=== PATIENT | female | born 1955 | race Caucasian/White ===

== ENCOUNTER 2020-06-09 15:25 | Emergency (ER) | payer MEDICARE, OTHER ==
[2020-06-09] MEDS ORDERED: Amoxicillin/Clavulanate K 875-125 MG Tab PO ONE (15:39)
--- NOTE | 2020-06-09 15:48 | EDM.PDOC ---
ED HPI GENERAL MEDICAL PROBLEM - General Chief Complaint: Bite:Animal, Insect Stated Complaint: CAT BITE - L ARM Time Seen by Provider: 06/09/20 15:33 Source of Information: Reports: Patient, RN Notes Reviewed History Limitations: Reports: No Limitations - History of Present Illness INITIAL COMMENTS - FREE TEXT/NARRATIVE: Patient is a 64-year-old female who presents to the ER for the evaluation of a cat bite. [place], and a farm cat, who comes and goes, came up to her, and ended up biting her on her left forearm. There are 4 puncture wounds on the arm, not actively bleeding at the time. Patient notes that this cat is not aggressive normally, and she is wondering if he did not smell her cat on her, and this is why he may have bitten her. She notes that he is not up-to-date on vaccinations, or she is unaware of his vaccination status. She states however he has not been known to be mean otherwise. He has not acted like this before ever. She is up-to-date on her vaccinations. She is having no fevers or chills, cough or shortness of breath, nausea/vomiting/diarrhea. She denies any numbness or tingling distal to the injury, and still has all range of motion of her hand. - Related Data Allergies Allergy/AdvReac Type Severity Reaction Status Date / Time tramadol Allergy Nervousness Verified 06/09/20 15:33 Home Meds: Home Meds Metoprolol Succinate [Toprol XL 100mg] 100 mg PO DAILY 09/11/18 [History] Amoxicillin/Clavulanate K [Augmentin 875-125 MG] 1 tab PO BID #20 tablet 06/09/20 [Rx] Pravastatin Sodium [Pravastatin (Pravachol)] 40 mg PO DAILY 06/09/20 [History] tiZANidine [Zanaflex] 4 mg PO DAILY 06/09/20 [History] Past Medical History Musculoskeletal History: Reports: Osteoarthritis, Other (See Below) Other Musculoskeletal History: back fusion Oncologic (Cancer) History: Reports: Breast - Past Surgical History GI Surgical History: Reports: Appendectomy Female Surgical History: Reports: Other (See Below) Other Female Surgeries/Procedures: right lumpectomy Social & Family History - Caffeine Use Caffeine Use: Reports: Coffee, Soda, Tea ED ROS GENERAL - Review of Systems Review Of Systems: Comprehensive ROS is negative, except as noted in HPI. ED EXAM, ANIMAL BITE - Physical Exam Exam: See Below Exam Limited By: No Limitations General Appearance: Alert, WD/WN, No Apparent Distress Respiratory/Chest: No Respiratory Distress, Lungs Clear, Normal Breath Sounds, No Accessory Muscle Use, Chest Non-Tender Cardiovascular: Normal Peripheral Pulses, Regular Rate, Rhythm, No Edema Peripheral Pulses: 2+: Radial (L), Radial (R) Extremities: Normal Range of Motion, Normal Capillary Refill Neurological: Alert, Oriented, Normal Cognition, No Motor/Sensory Deficits Psychiatric: Normal Affect, Normal Mood Skin Exam: Normal Color, Warm/Dry, Other (4 tooth like puncture wounds on the left ulnar aspect of forearm, about midway up the forearm.) Course - Vital Signs Last Recorded V/S: Last Vital Signs Temp 97.5 F 06/09/20 15:39 Pulse 97 06/09/20 15:39 Resp 18 06/09/20 15:39 BP 144/71 H 06/09/20 15:39 Pulse Ox 98 06/09/20 15:39 - Orders/Labs/Meds Meds: Medications Discontinued Medications Generic Name Dose Route Start Last Admin Trade Name Freq PRN Reason Stop Dose Admin Amoxicillin/Clavulanate Potassium 1 tab 06/09/20 15:39 Amoxicillin/Clavulanate K 875-125 Mg Tab PO 06/09/20 15:40 ONETIME ONE - Re-Assessments/Exams Free Text/Narrative Re-Assessment/Exam: 06/09/20 15:44 Patient presents to the ER for the evaluation of her cat bite, we will go ahead and start her on Augmentin for antibiotic prophylaxis. Since she is not sure of the cat's vaccination status, we will have her try to quarantine the cat if she can. As the cat will need to observe it for period of 10 days, for rabies-like symptoms, and she will need to start prophylaxis series if the cat's behavior becomes concerning for rabies. Departure - Departure Time of Disposition: 15:45 Disposition: Home, Self-Care 01 Condition: Good Clinical Impression: Cat bite of forearm Qualifiers: Encounter type: initial encounter Laterality: left Qualified Code(s): S51.852A - Open bite of left forearm, initial encounter - Discharge Information *PRESCRIPTION DRUG MONITORING PROGRAM REVIEWED*: No *COPY OF PRESCRIPTION DRUG MONITORING REPORT IN PATIENT TESS: No Prescriptions: Amoxicillin/Clavulanate K [Augmentin 875-125 MG] 1 tab PO BID #20 tablet Instructions: Animal Bite, Adult, [id number] Referrals: Mercedes Geller MD [Primary Care Provider] - Forms: ED Department Discharge Additional Instructions: You were evaluated in the ER today for your cat bite on your left forearm. The wound was cleansed with iodine. You were started on antibiotic, Augmentin, 1 tablet 2 times a day for the next 10 days. This medication was electronically sent to the [place] pharmacy located in the [facility] [employer] [facility] [facility]. Please monitor the area for any increased redness/swelling/drainage from the wound sites. You may use 500 mg Tylenol or 600 mg ibuprofen every 6 hours as needed for further pain relief, do not exceed 4000 mg Tylenol or 3200 mg ibuprofen in a 24-hour time span. Due to the cat in question being a farm cat, and not being up-to-date on its vaccinations, the cat should be quarantined for at least a period of 10 days, to be observed to make sure that it does not exhibit any signs or symptoms for possible rabies. Please be in contact with your regular care provider, for further rabies prophylaxis if the cat should be declared a concern for rabies. Please return to the ER at any time if symptoms change or worsen. Sepsis Event Note (ED) - Focused Exam Vital Signs: Vital Signs Temp Pulse Resp BP Pulse Ox 06/09/20 15:39 97.5 F 97 18 144/71 H 98
== END 2020-06-09 16:25 | disposition home or self-care (01) ==
LOC: JD.ED 15:25
DX: S51.852A Open bite of left forearm, initial encounter (principal); Z88.6 Allergy status to analgesic agent; W55.01XA Bitten by cat, initial encounter
CPT/HCPCS: 99283; A9270

== ENCOUNTER 2023-08-01 15:55 | Emergency (ER) | payer MEDICARE ==
[2023-08-01] MEDS: diphenhydrAMINE 25 MG Cap PO ONE (16:34)
[2023-08-01 16:48] LABS: BASOPHILS PERCENT AUTO 0.1 % (0.0-1.0); HEMATOCRIT 33.8 % (37.0-47.0); HEMOGLOBIN 11.7 gm/dl (12.0-16.0); IMMATURE GRAN ABSOLUTE AUTO 0.05 K/mm3 (0.00-0.05); IMMATURE GRAN PERCENT AUTO 0.4 % (0.0-0.4); LYMPHOCYTES ABSOLUTE AUTO 0.7 K/mm3 (1.0-4.8); LYMPHOCYTES PERCENT AUTO 5.9 % (24.0-44.0); MEAN CORPUSCULAR HEMOGLOBIN 31.6 pg (28.0-32.0); MEAN CORPUSCULAR HGB CONC 34.6 g/dl (32.0-36.0); MEAN CORPUSCULAR VOLUME 91.4 fl (83.0-99.0); MEAN PLATELET VOLUME 8.9 fl (9.4-12.3); MONOCYTES ABSOLUTE AUTO 0.6 K/mm3 (0.0-0.8); MONOCYTES PERCENT AUTO 5.4 % (0.0-8.0); NEUTROPHILS ABSOLUTE AUTO 10.2 K/mm3 (1.8-7.7); NEUTROPHILS PERCENT AUTO 88.2 % (41.0-71.0); PLATELET COUNT,PLT 228 K/mm3 (150-400); WHITE BLOOD CELL COUNT,WBC 11.56 K/mm3 (3.9-11.3)
[2023-08-01 17:54] LABS: A/G RATIO 1.2 (1-2); ALBUMIN 3.8 g/dl (3.4-5.0); ANION GAP 14.6 (5-15); BILIRUBIN TOTAL 0.5 mg/dL (0.2-1.0); EST CRCL DRUG DOSING (CG) 47.78 mL/min; POTASSIUM,K 3.6 mEq/L (3.5-5.1); PROTEIN TOTAL,TP 6.9 g/dl (6.4-8.2)
== END 2023-08-01 21:44 | disposition home or self-care (01) ==
LOC: JD.ED 15:55
DX: T50.905A Adverse effect of unspecified drugs, medicaments and biological substances, initial encounter (principal); E78.00 Pure hypercholesterolemia, unspecified; I10 Essential (primary) hypertension; Z79.899 Other long term (current) drug therapy; Z88.6 Allergy status to analgesic agent
CPT/HCPCS: 36415; 80053; 85025; 99283; A9270